=== PATIENT | female | born 1940 | race Caucasian/White ===

== ENCOUNTER 2017-11-29 05:42 | Inpatient (IN) | payer MEDICARE, MEDICAID ==
[~2017-11-29] VITALS: Ht 157.5 cm; Wt 63.5 kg
--- NOTE | ~2017-11-29 | EKG ---
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
[2017-11-29 05:42] VITALS: BP 102/53
[~2017-11-29 05:42] MED LIST: ALL DAY PAIN R220 MG PO; ANTACID168 MG PO; APAP500 PO; ARTIFICIAL TEA1 EACH OPHTHALMIC; BENZTROPINE MES1 MG PO; BETA CAROTEN25000 IU PO; CEFUROXIME500 MG PO; CHOLESTYRAMINE R5 GM MC; CLARITIN10 MG PO; FANAPT12 MG PO; GABAPENTIN 100100 MG PO; LEVAQUIN 500 M500 M1 PO; LOPERAMIDE 2 MG2 M1 PO; LOPRESSOR 12.12.5 MG PO; LYRICA 50 MG50 MG PO; METOPROLOL SUCC50 MG PO; NIZORAL120 ML TP; NYSTATIN 1100000 U/M PO; PREDNISONE 10 M10 MG PO; PROAIR HFA8.5 GM INH; REMERON15 MG PO; RISPERDAL0.25 MG PO; SYMBICORT160 MCG/4. INH; UNICOMPLEX M TA1 TA1 PO; ZANTAC 150MG T150 MG PO
[2017-11-29] MEDS ORDERED: FANAPT12 MG ×2 (05:50)
[2017-11-29] MEDS ORDERED: ONDANSETRON HCL4 M2 (05:54)
[2017-11-29] MEDS ORDERED: HYDROCODONE-AP1 EAC6 (05:56)
[2017-11-29 06:14] LABS: ABSOLUTE EOSINOPHILS 0.5 thou/uL (0.0-0.7); ABSOLUTE LYMPHOCYTES 2.8 thou/uL (0.8-5.3); ABSOLUTE MONOCYTES 0.7 thou/uL (0.0-1.2); ABSOLUTE NEUTROPHILS 3.4 thou/uL (1.6-8.1); BASOPHILS 0.4 %; EOSINOPHILS 6.3 %; HEMATOCRIT 43.8 % (37.0-47.0); HEMOGLOBIN 14.6 gm/dL (12.0-15.0); LYMPHOCYTES 38.1 %; MCH 31.1 pg (26.0-34.0); MCHC 33.4 g/dL (28.0-37.0); MCV 92.9 fL (80.0-100.0); MPV 7.7 fl. (7.2-11.1); NUCLEATED RBCS 0 /100WBC; PLATELET COUNT* 187 thou/uL (150-400); POLYS 46.2 %; RBC 4.71 mil/uL (4.20-5.00); WBC 7.3 thou/uL (4.0-11.0)
[2017-11-29 06:23] LABS: ANION GAP 4 mmol/L (7-16); BUN 10 mg/dL (7-18); CALCIUM 8.5 mg/dL (8.5-10.1); CHLORIDE 107 mmol/L (98-107); CO2 31 mmol/L (21-32); CREATININE 0.8 mg/dL (0.6-1.3); GLUCOSE 96 mg/dL (70-99); POTASSIUM 3.8 mmol/L (3.5-5.1); SODIUM 142 mmol/L (136-145)
[2017-11-29 06:38] LABS: ALBUMIN 3.5 g/dL (3.4-5.0); ALKALINE PHOSPHATASE 104 U/L (46-116); LIPASE 69 U/L (73-393); NT-PRO BRAIN NAT PEPTIDE 116 pg/mL (<300); SGOT 18 U/L (15-37); SGPT 21 U/L (30-65); TOTAL BILIRUBIN 0.3 mg/dL (<0.1-1.0); TOTAL PROTEIN 6.6 g/dL (6.4-8.2); TROPONIN-I LEVEL <0.06 ng/mL (<0.06)
[2017-11-29 09:19] VITALS: BP 109/58
[2017-11-29 09:30] VITALS: BP 124/74
--- NOTE | 2017-11-29 09:30 | NUR ---
PT UP TO ROOM 108 VIA CART. PT ORIENTED TO ROOM,CALL LIGHT WITHIN REACH. PT UP IN ROOM,NO FALL RISK.
--- NOTE | 2017-11-29 12:18 | NUR ---
SPOKE TO NURSE AT [facility]. MED LIST RECEIVED
--- NOTE | 2017-11-29 14:43 | EKG ---
[place] [address] ELECTROCARDIOGRAM REPORT Name: JUAN JACOBO Room: [address] ADM IN .R.#: [id number] Admission: 11/29/17 Attend Phys: Bryce Travis MD Discharge: Date of : 44 Report #: [id number] THIS REPORT FOR: //name// 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
[2017-11-29 16:04] VITALS: BP 119/69
--- NOTE | 2017-11-29 17:02 | NUR ---
PT UP IN ROOM WITH STEADY GAIT. PT DENIES PAIN. NO SOA NOTED. PT TOLERATING PO WELL
[2017-11-29 20:00] VITALS: BP 111/63
[2017-11-30] VITALS: BP 121/72
--- NOTE | 2017-11-30 04:26 | NUR ---
PATIENT IS A/O X 4 AND PLEASANT. PATIENT ENJOYS WALKING IN ROOM AND HAS A STEADY GAIT, ALTHOUGH SHE HAS NOT AMBULATED OVERNIGHT OFTEN. PATIENT DENIES ANY SOA AND PER ASSESSENT, HAS NO COUGH AT THIS TIME. PATIENT HAD HER LAST BOWEL MOVEMENT 11/29/17, ALTHOUGH SHE VERBALIZES THAT SHE HAS DIARRHEA ALMOST EVERY NIGHT. 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 2L O2 WAS PLACED ON PATIENT AT THAT TIME. PATIENT RESPIRATIONS WERE REGULAR AND EVEN AND PATIENT WAS NOT C/O SOA AT THAT TIME. HOURLY ROUNDS PERFORMED. NURSING TO FOLLOW-UP NECESSARY. ALL FALL PRECAUTIONS IN PLACE, INCLUDING CALL LIGHT WTIHIN REACH. WILL CONTINUE TO MONITOR CLOSELY.
[2017-11-30 08:00] VITALS: BP 109/64
--- NOTE | 2017-11-30 12:17 | NUR ---
CM SPOKE TO THE PATIENT TO DISCUSS HOME SITUATION, DISCHARGE PLANNING, AND TO INFORM OF THE ROLE OF CM. PATIENT ALERT, BUT FORGETFUL. CM SPOKE TO CHERYL AT [facility] AND SHE INFORMS THAT THE PATIENT IS A RESIDENT AT [employer], USUALLY CARES FOR HERSELF, AND DOES NOT USE ANY EQUIPMENT. PATIENT HAS A PUBLIC RUG RENOVATOR (BRE MICHAUD) AND SHE WILL NEED TO BE CONTACTED PRIOR TO DISCHARGE. SHE ALSO INFORMS THAT THE PATIENT WILL NEED MEDICAID TRANSPORT AT DISCHARGE. CM WILL REMAIN AVIALABLE TO ASSIST AND FOLLOW NEEDED.
[2017-11-30] MEDS ORDERED: PREDNISONE 10 M10 MG PO ×2 (12:29)
[2017-11-30] MEDS ORDERED: PRILOSEC OTC20 MG PO ×2 (12:31)
[2017-11-30] MEDS ORDERED: LEVAQUIN 500 M500 M2 PO ×2 (12:31)
[2017-11-30 12:32] VITALS: BP 109/64
[2017-12-01] MEDS ORDERED: PROTONIX40 M1 PO (08:33)
[2017-12-01] MEDS ORDERED: ENOXAPARIN40 MG/0.1 SUBQ (08:34)
[2017-12-01] MEDS ORDERED: PREVALITE PACKET4 GM PO (08:35)
[2017-12-01] MEDS ORDERED: PEPCID20 MG PO (08:36)
[2017-12-01] MEDS ORDERED: LEVOFLOXAC250 MG/50 IV ×2 (08:37)
[2017-12-01] MEDS ORDERED: METOPROLOL TART25 MG PO ×2 (08:39)
[2017-12-01] MEDS ORDERED: COLACE100 MG PO (08:40)
[2017-12-01] MEDS ORDERED: MIRALAX17 GM PO (08:43)
[2017-12-01] MEDS ORDERED: TYLENOL325 MG PO (08:44)
[2017-12-01] MEDS ORDERED: BENZTROPINE MES1 MG PO (08:44)
== END 2017-11-30 12:30 | disposition home or self-care (01) | DRG 189 ==
LOC: M.ERS 05:42 → M.ORTHSURG 06:56 → M.TBA-ER 06:56 → M.ORTHSURG 09:24
PROVIDERS: Emergency Medicine Emergency Medical Services; ADMIT Internal Medicine
DX: J96.20 Acute and chronic respiratory failure, unspecified whether with hypoxia or hypercapnia (principal); J44.1 Chronic obstructive pulmonary disease with (acute) exacerbation; R65.10 Systemic inflammatory response syndrome (SIRS) of non-infectious origin without acute organ dysfunction; J44.0 Chronic obstructive pulmonary disease with (acute) lower respiratory infection; J20.9 Acute bronchitis, unspecified; I10 Essential (primary) hypertension; F20.9 Schizophrenia, unspecified; M79.7 Fibromyalgia; F41.9 Anxiety disorder, unspecified; F31.9 Bipolar disorder, unspecified; F17.210 Nicotine dependence, cigarettes, uncomplicated; Z79.899 Other long term (current) drug therapy; Z88.2 Allergy status to sulfonamides; Z82.49 Family history of ischemic heart disease and other diseases of the circulatory system

== ENCOUNTER 2017-12-01 08:23 | Inpatient (IN) | payer MEDICARE, MEDICAID ==
[~2017-12-01] VITALS: Ht 157.5 cm; Wt 65.5 kg
[~2017-12-01 08:23] MED LIST changes: +FANAPT12 MG; +HYDROCODONE-AP1 EAC6; +LEVAQUIN 500 M500 M2 PO; +ONDANSETRON HCL4 M2; +PRILOSEC OTC20 MG PO
[2017-12-01 08:25] VITALS: BP 107/64
[2017-12-01] MEDS ORDERED: PROTONIX40 M1 PO (08:33)
[2017-12-01] MEDS ORDERED: ENOXAPARIN40 MG/0.1 SUBQ (08:34)
[2017-12-01] MEDS ORDERED: PREVALITE PACKET4 GM PO (08:35)
[2017-12-01] MEDS ORDERED: PEPCID20 MG PO (08:36)
[2017-12-01] MEDS ORDERED: LEVOFLOXAC250 MG/50 IV ×2 (08:37)
[2017-12-01] MEDS ORDERED: METOPROLOL TART25 MG PO ×2 (08:39)
[2017-12-01] MEDS ORDERED: COLACE100 MG PO (08:40)
[2017-12-01] MEDS ORDERED: MIRALAX17 GM PO (08:43)
[2017-12-01] MEDS ORDERED: TYLENOL325 MG PO (08:44)
[2017-12-01] MEDS ORDERED: BENZTROPINE MES1 MG PO (08:44)
[2017-12-01 09:06] LABS: ABSOLUTE EOSINOPHILS 0.1 thou/uL (0.0-0.7); ABSOLUTE LYMPHOCYTES 2.4 thou/uL (0.8-5.3); ABSOLUTE MONOCYTES 0.9 thou/uL (0.0-1.2); ABSOLUTE NEUTROPHILS 10.8 thou/uL (1.6-8.1); BASOPHILS 0.1 %; EOSINOPHILS 0.5 %; HEMATOCRIT 43.8 % (37.0-47.0); HEMOGLOBIN 14.5 gm/dL (12.0-15.0); LYMPHOCYTES 16.7 %; MCHC 33.1 g/dL (28.0-37.0); MCV 93.8 fL (80.0-100.0); MONOCYTES 6.1 %; MPV 7.9 fl. (7.2-11.1); NUCLEATED RBCS 0 /100WBC; PLATELET COUNT* 187 thou/uL (150-400); POLYS 76.6 %; RBC 4.67 mil/uL (4.20-5.00); RDW-CV 14.3 % (10.5-14.5); WBC 14.1 thou/uL (4.0-11.0)
[2017-12-01 09:16] LABS: CALCIUM 8.2 mg/dL (8.5-10.1); CREATININE 0.9 mg/dL (0.6-1.3); POTASSIUM 4.3 mmol/L (3.5-5.1)
[2017-12-01 09:21] LABS: ALBUMIN 3.4 g/dL (3.4-5.0); TOTAL BILIRUBIN 0.3 mg/dL (<0.1-1.0); TOTAL PROTEIN 6.3 g/dL (6.4-8.2)
[2017-12-01 09:26] LABS: NT-PRO BRAIN NAT PEPTIDE 708 pg/mL (<300); TROPONIN-I LEVEL <0.06 ng/mL (<0.06)
[2017-12-01 09:35] VITALS: BP 96/63
[2017-12-01 10:00] VITALS: BP 104/57
--- NOTE | 2017-12-01 10:12 | NUR ---
PATIENT ADMITTED FROM ER TO ROOM 105. ALERT AND ORIENTED. DISCHARGED FROM HOSPITAL YESTERDAY, STATES ASSISTED LIVING FACILITY WAS NOT GIVING HER BREATHING TREATMENTS. RA SAT IN THE 80'S. 93% ON RA CURRENTLY. ADMISSSION HISTORY AND ASSESSMENT CHARTED. FALL PREVENTION DISCUSSED WITH PATIENT. ORIENTED TO ROOM AND ENVIROMET. VSS. CALLOUS LEFT HEEL, DRY. HEELS ELEVATED ON PILLOW. CALL LIGHT WITHIN REACH. WILL CONTINUE TO [facility].
[2017-12-01 15:45] VITALS: BP 111/62
--- NOTE | 2017-12-01 16:02 | NUR ---
PATIENT REMAINS AT BASELINE ORIENTATION, SLIGHTLY FORGETFUL.VSS. TOLERATING MEALS. SOB ON EXERTION IMPROVING THIS AFTERNOON. O2 AT 2L, SAT 93%. VOIDING PER TOILET. PATIENT DENIES NEEDS. CALL LIGHT WITHIN REACH. WILL CONTINUE TO MONITOR.
--- NOTE | 2017-12-01 16:19 | NUR ---
CM SPOKE TO THE PATIENT TO DISCUSS HOME SITUATION, AND DISCHARGE PLANNING. PATIENT IS KNOWN TO THIS CM SHE STEWART JUST BEEN D/C'D YESTERDAY BACK TO [facility]. PATIENT STATES 'I COULDN'T BREATH SO I HAD TO COME BACK'. PATIENT PLANS TO RETURN TO [place] AT DISCHARGE. PATIENT HAS A P.A. BRE MICHAUD AND SHE WILL NEED TO BE CONTACTED PRIOR TO DISCHARGE. RN WILL NEED TO CONTACT [facility] AND GIVE REPORT, AND ORDERS WILL NEED TO BE FAXED WELL. PATIENT DOES NOT HAVE TRANSPORTATION HOME AND WILL ALSO REQUIRE MEDICAID TRANSPORT ([employer]) AT D/C. CM WILL REMAIN AVAILABLE TO ASSIST AND FOLLOW NEEDED. [facility] PHONE: [phone] FAX: [phone] [facility] (MEDICAID TRANSPORT) PHONE: [phone] PUBLIC GRANITE CHIP TERRAZZO FINISHER (BRE MICHAUD) PHONE: [phone]
[2017-12-01 21:00] VITALS: BP 112/61
[2017-12-02 04:06] VITALS: BP 127/73
--- NOTE | 2017-12-02 05:14 | NUR ---
PATIENT ALERT AND ORIENTED, FORGETFUL AT TIMES. VITALS STABLE. ON 2L OF OXYGEN. SOB WITH EXERTION. UP WITH ASSIST X 1 TO BATHROOM. INSTRUCTED TO CALL FOR ASSISTANCE. RESTED WELL THROUGH THE NIGHT. HOURLY ROUNDS. BED ALARM IN USE. NURSING WILL CONTINUE TO MONITOR.
[2017-12-02 08:25] VITALS: BP 105/69
[2017-12-02 15:59] VITALS: BP 113/59
[2017-12-02 20:30] VITALS: BP 145/55
[2017-12-03 04:00] VITALS: BP 103/56
[2017-12-03 04:03] LABS: HEMOGLOBIN 14.3 gm/dL (12.0-15.0); MCH 31.2 pg (26.0-34.0); MCHC 33.4 g/dL (28.0-37.0); MCV 93.6 fL (80.0-100.0); MPV 8.4 fl. (7.2-11.1); RBC 4.6 mil/uL (4.20-5.00); RDW-CV 14.6 % (10.5-14.5); WBC 13.3 thou/uL (4.0-11.0)
[2017-12-03 04:17] LABS: CALCIUM 8.3 mg/dL (8.5-10.1); MAGNESIUM 2.2 mg/dL (1.8-2.4); POTASSIUM 4.1 mmol/L (3.5-5.1)
--- NOTE | 2017-12-03 07:36 | NUR ---
PATIENT ALERT AND ORIENTED, FORGETFUL AT TIMES. VITALS STABLE. ON 2L OF OXYGEN. UP SBA TO BATHROOM. TYLENOL GIVEN FOR LEFT HEEL PAIN. HOURLY ROUNDS. BED ALARM IN USE. NURSING WILL CONTINUE TO MONITOR.
[2017-12-03 08:37] VITALS: BP 112/62
[2017-12-03] MEDS ORDERED: LEVAQUIN 750 M750 MG PO (09:55)
[2017-12-03] MEDS ORDERED: PREDNISONE 10 M10 MG PO (09:56)
[2017-12-03 09:58] VITALS: BP 112/62
--- NOTE | 2017-12-03 14:15 | NUR ---
PT.HAS DISCHARGE ORDERS FOR TODAY TO RETURN TO [facility]. TRANSPORTATION SET UP WITH [facility] FOR 2:05-5:05 ([phone]/TRIP #[id number]). NOTIFIED CHERYL/[facility] [phone] THAT PT.RETURNING TODAY. FAXED DISCHARGE ORDERS TO HER AT [phone]. PT.HAS HH ORDERS. CHERYL REQUEST I SET UP WITH [facility]. SPOKE WITH AGUEDA/VIKA AND FAXED ORDERS/H&P TO HER [phone]. THEY WILL CALL [facility] TO SET UP APPT.TIME. CHART COPIED TO GO WITH PT. MACY WILHELM WILL CALL REPORT. NOTIFIED NAI AT PUBLIC ADM.OFFICE [phone] THAT PT.DISCHARGEING TODAY. SHE WILL GIVE BRE MICHAUD DPA,MESSAGE AND ENTER IT INTO THE RECORDS.
--- NOTE | 2017-12-03 16:52 | NUR ---
PATIENT DISCHARGED TO [facility]. REPORT CALLED. MEDICAID TRANSPORTATION PICKED PATIENT UP. IV REMOVED.
== END 2017-12-03 16:54 | DRG 70 ==
LOC: M.ERS 08:23 → M.TBA-ER 08:52 → M.ORTHSURG 08:52
PROVIDERS: Family Medicine; ADMIT Internal Medicine
DX: G93.41 Metabolic encephalopathy (principal); J96.21 Acute and chronic respiratory failure with hypoxia; J44.1 Chronic obstructive pulmonary disease with (acute) exacerbation; I10 Essential (primary) hypertension; J40 Bronchitis, not specified as acute or chronic; F41.9 Anxiety disorder, unspecified; F31.9 Bipolar disorder, unspecified; K59.00 Constipation, unspecified; F17.210 Nicotine dependence, cigarettes, uncomplicated; R09.02 Hypoxemia; D72.829 Elevated white blood cell count, unspecified; F20.9 Schizophrenia, unspecified; K21.9 Gastro-esophageal reflux disease without esophagitis; Z88.2 Allergy status to sulfonamides; Z82.49 Family history of ischemic heart disease and other diseases of the circulatory system

== ENCOUNTER 2018-03-02 18:32 | Inpatient (IN) | payer MEDICARE, MEDICAID ==
[~2018-03-02] VITALS: Ht 157.5 cm; Wt 70.3 kg
[~2018-03-02 18:32] MED LIST changes: +COLACE100 MG PO; +ENOXAPARIN40 MG/0.1 SUBQ; +LEVAQUIN 750 M750 MG PO; +LEVOFLOXAC250 MG/50 IV; +METOPROLOL TART25 MG PO; +MIRALAX17 GM PO; +PEPCID20 MG PO; +PREVALITE PACKET4 GM PO; +PROTONIX40 M1 PO; +TYLENOL325 MG PO
[2018-03-02 18:34] VITALS: BP 129/72
[2018-03-02 19:03] LABS: ABSOLUTE EOSINOPHILS 0.8 thou/uL (0.0-0.7); ABSOLUTE LYMPHOCYTES 2.5 thou/uL (0.8-5.3); ABSOLUTE MONOCYTES 1.1 thou/uL (0.0-1.2); ABSOLUTE NEUTROPHILS 5.2 thou/uL (1.6-8.1); BASOPHILS 0.3 %; EOSINOPHILS 8.3 %; HEMATOCRIT 42.5 % (37.0-47.0); HEMOGLOBIN 14.1 gm/dL (12.0-15.0); LYMPHOCYTES 25.7 %; MCH 31.3 pg (26.0-34.0); MCHC 33.3 g/dL (28.0-37.0); MONOCYTES 11.2 %; MPV 7.9 fl. (7.2-11.1); NUCLEATED RBCS 0 /100WBC; PLATELET COUNT* 174 thou/uL (150-400); POLYS 54.5 %; RBC 4.52 mil/uL (4.20-5.00); RDW-CV 13.6 % (10.5-14.5); WBC 9.5 thou/uL (4.0-11.0)
[2018-03-02 19:08] LABS: ANION GAP 9 mmol/L (7-16); APTT 26.4 Seconds (25.0-31.3); BUN 11 mg/dL (7-18); CALCIUM 8.7 mg/dL (8.5-10.1); CHLORIDE 102 mmol/L (98-107); CO2 30 mmol/L (21-32); CREATININE 0.9 mg/dL (0.6-1.3); GLUCOSE 192 mg/dL (70-99); POTASSIUM 3.8 mmol/L (3.5-5.1); PROTIME 10.2 Seconds (9.20-11.50); SODIUM 141 mmol/L (136-145)
[2018-03-02 19:18] LABS: ALBUMIN 3.8 g/dL (3.4-5.0); ALKALINE PHOSPHATASE 115 U/L (46-116); LIPASE 67 U/L (73-393); MAGNESIUM 1.9 mg/dL (1.8-2.4); NT-PRO BRAIN NAT PEPTIDE 138 pg/mL (<300); SGOT 21 U/L (15-37); SGPT 26 U/L (30-65); TOTAL BILIRUBIN 0.3 mg/dL (<0.1-1.0); TROPONIN-I LEVEL <0.06 ng/mL (<0.06)
[2018-03-02 20:34] VITALS: BP 119/71
[2018-03-02 20:45] VITALS: BP 115/90
[2018-03-02] MEDS ORDERED: FANAPT12 MG PO (23:16)
[2018-03-02] MEDS ORDERED: VITAMIN D2000 UNIT PO (23:17)
[2018-03-02] MEDS ORDERED: LOPERAMIDE 2 MG2 M1 PO (23:18)
[2018-03-02] MEDS ORDERED: HYDROCODONE-AP1 EAC6 PO (23:19)
[2018-03-03] VITALS (7 sets, daily range): BP systolic 106–139; BP diastolic 50–67
[2018-03-03 04:38] LABS: CALCIUM 8.9 mg/dL (8.5-10.1); CREATININE 1.1 mg/dL (0.6-1.3); POTASSIUM 4.3 mmol/L (3.5-5.1)
[2018-03-03 04:46] LABS: HEMATOCRIT 41.8 % (37.0-47.0); MCH 31.2 pg (26.0-34.0); MCHC 33.6 g/dL (28.0-37.0); MCV 92.9 fL (80.0-100.0); MPV 8.3 fl. (7.2-11.1); RBC 4.5 mil/uL (4.20-5.00); RDW-CV 13.5 % (10.5-14.5); WBC 7.1 thou/uL (4.0-11.0)
--- NOTE | 2018-03-03 12:07 | EKG ---
[place] [address] ELECTROCARDIOGRAM REPORT Name: DONNELLJUAN Room: [address] IN [facility]#: [id number] Admission: 03/02/18 Attend Phys: Rowdy Rod, Discharge: Date of : 44 Report #: [id number] THIS REPORT FOR: //name// [facility] ED Test Date: 2018-03-02 Test Time: 18:40:23 Pat Name: JUAN JACOBO Department: Room: Gender: F Chief Order Dispatcher: YISSEL : 1940 Requested By: Gee Martinez Order Number: [id number] MD: Fredi Navarro Measurements Intervals [place] Rate: 115 P: 87 SC: 166 QRS: 72 QRSD: 84 T: 10 QT: 328 QTc: 454 Interpretive Statements Sinus tachycardia Compared to ECG 12/01/2017 08:44:07 Sinus rhythm no longer present Electronically Signed On 03-03-2018 12:07:28 CDT by Fredi Navarro [email or web address] <ELECTRONICALLY SIGNED> By: Sabina Navarro MD, [facility] 03/03/18 1207 39 39 Sabina Navarro MD, [facility] /EPI
[2018-03-04 03:46] VITALS: BP 116/68
[2018-03-04 05:05] LABS: HEMATOCRIT 40.9 % (37.0-47.0); HEMOGLOBIN 13.6 gm/dL (12.0-15.0); MCH 30.7 pg (26.0-34.0); MCHC 33.3 g/dL (28.0-37.0); MCV 92.4 fL (80.0-100.0); MPV 8.3 fl. (7.2-11.1); RBC 4.43 mil/uL (4.20-5.00); RDW-CV 13.7 % (10.5-14.5); WBC 19.1 thou/uL (4.0-11.0)
[2018-03-04 05:26] LABS: CALCIUM 8.5 mg/dL (8.5-10.1); POTASSIUM 4.6 mmol/L (3.5-5.1)
[2018-03-04 08:09] VITALS: BP 93/59
[2018-03-04 11:36] VITALS: BP 95/41
[2018-03-04 15:39] VITALS: BP 135/67
[2018-03-04 20:15] VITALS: BP 127/58
[2018-03-05 05:01] LABS: HEMATOCRIT 40.2 % (37.0-47.0); HEMOGLOBIN 13.3 gm/dL (12.0-15.0); MCH 30.7 pg (26.0-34.0); MCHC 33.2 g/dL (28.0-37.0); MCV 92.6 fL (80.0-100.0); MPV 8.2 fl. (7.2-11.1); NUCLEATED RBCS 0 /100WBC; PLATELET COUNT* 184 thou/uL (150-400); RBC 4.34 mil/uL (4.20-5.00); RDW-CV 13.5 % (10.5-14.5); WBC 16.3 thou/uL (4.0-11.0)
[2018-03-05 05:29] LABS: ALBUMIN 3.2 g/dL (3.4-5.0); CALCIUM 8.4 mg/dL (8.5-10.1); CREATININE 0.9 mg/dL (0.6-1.3); MAGNESIUM 2.1 mg/dL (1.8-2.4); POTASSIUM 4.2 mmol/L (3.5-5.1); TOTAL BILIRUBIN 0.3 mg/dL (<0.1-1.0); TOTAL PROTEIN 6.2 g/dL (6.4-8.2)
[2018-03-05 06:00] LABS: ABSOLUTE EOSINOPHILS 0.2 thou/uL (0.0-0.7); ABSOLUTE LYMPHOCYTES 1.3 thou/uL (0.8-5.3); ABSOLUTE MONOCYTES 0.5 thou/uL (0.0-1.2); ABSOLUTE NEUTROPHILS 14.3 thou/uL (1.6-8.1); PLATELET ESTIMATE ADEQUATE
[2018-03-05 06:01] LABS: ANISOCYTOSIS 1+; POIKILOCYTOSIS 1+
[2018-03-05 08:39] VITALS: BP 142/78
[2018-03-05 12:27] VITALS: BP 126/64
[2018-03-05 16:00] VITALS: BP 140/70
[2018-03-05 20:43] VITALS: BP 130/70
[2018-03-05 23:33] VITALS: BP 127/72
[2018-03-06 03:55] VITALS: BP 111/52
[2018-03-06 07:59] VITALS: BP 117/69
[2018-03-06] MEDS ORDERED: CEFDINIR300 MG PO (10:07)
[2018-03-06] MEDS ORDERED: DUONEB 2.5-0.5 M3 ML INH (10:07)
[2018-03-06] MEDS ORDERED: AEROECLIPSE II1 EACH INH (10:07)
[2018-03-06] MEDS ORDERED: AZITHROMYCIN 2250 MG PO (10:07)
[2018-03-06] MEDS ORDERED: PREDNISONE 10 M10 MG PO (10:07)
[2018-03-06] MEDS ORDERED: ALBUTEROL2.5 MG/31 INH (10:37)
[2018-03-06] MEDS ORDERED: VITAMIN D3400 UNIT PO (10:37)
[2018-03-06 10:40] VITALS: BP 117/69
[2018-03-06 12:13] VITALS: BP 117/69
== END 2018-03-06 13:00 | disposition home or self-care (01) | DRG 177 ==
LOC: M.ERS 18:32 → M.TBA-ER 19:05 → M.2W 19:05
PROVIDERS: Family Medicine; Internal Medicine; ADMIT Family Medicine
DX: J15.6 Pneumonia due to other Gram-negative bacteria (principal); J96.21 Acute and chronic respiratory failure with hypoxia; J44.1 Chronic obstructive pulmonary disease with (acute) exacerbation; R65.10 Systemic inflammatory response syndrome (SIRS) of non-infectious origin without acute organ dysfunction; E87.2 Acidosis; J18.9 Pneumonia, unspecified organism; I10 Essential (primary) hypertension; M79.7 Fibromyalgia; F41.9 Anxiety disorder, unspecified; E78.5 Hyperlipidemia, unspecified; I95.9 Hypotension, unspecified; R73.9 Hyperglycemia, unspecified; F31.9 Bipolar disorder, unspecified; F17.210 Nicotine dependence, cigarettes, uncomplicated; Z79.899 Other long term (current) drug therapy; Z88.2 Allergy status to sulfonamides; Z82.49 Family history of ischemic heart disease and other diseases of the circulatory system; Z82.5 Family history of asthma and other chronic lower respiratory diseases

== ENCOUNTER 2020-10-25 00:21 | Inpatient (IN) | payer MEDICARE, MEDICAID ==
[~2020-10-25] VITALS: Ht 177.8 cm; Wt 45.4 kg
[2020-10-25] VITALS (7 sets, daily range): BP systolic 91–141; BP diastolic 50–72
[~2020-10-25 00:21] MED LIST changes: +AEROECLIPSE II1 EACH INH; +ALBUTEROL2.5 MG/31 INH; +AZITHROMYCIN 2250 MG PO; +CEFDINIR300 MG PO; +DUONEB 2.5-0.5 M3 ML INH; +HYDROCODONE-AP1 EAC6 PO; +VITAMIN D2000 UNIT PO; +VITAMIN D3400 UNIT PO
[2020-10-25] MEDS ORDERED: FANAPT12 MG PO (00:34)
[2020-10-25] MEDS ORDERED: FANAPT6 MG PO (00:35)
[2020-10-25] MEDS ORDERED: BIOTIN1000 MCG PO (00:37)
[2020-10-25] MEDS ORDERED: NEURONTIN 300M300 M2 PO (00:37)
[2020-10-25] MEDS ORDERED: MELATONIN3 M2 PO (00:37)
[2020-10-25 01:02] LABS: ABSOLUTE BASOPHILS 0.1 thou/uL (0.0-0.2); ABSOLUTE EOSINOPHILS 0.4 thou/uL (0.0-0.7); ABSOLUTE LYMPHOCYTES 2.6 thou/uL (0.8-5.3); ABSOLUTE MONOCYTES 0.7 thou/uL (0.0-1.2); ABSOLUTE NEUTROPHILS 2.7 thou/uL (1.6-8.1); BASOPHILS 0.9 %; EOSINOPHILS 6.3 %; HEMATOCRIT 45.1 % (37.0-47.0); HEMOGLOBIN 14.9 gm/dL (12.0-15.0); LYMPHOCYTES 40.1 %; MCH 30.4 pg (26.0-34.0); MCV 92.2 fL (80.0-100.0); MONOCYTES 10.7 %; MPV 7.8 fl. (7.2-11.1); NUCLEATED RBCS 0 /100WBC; PLATELET COUNT* 172 thou/uL (150-400); RDW-CV 13.5 % (10.5-14.5); WBC 6.5 thou/uL (4.0-11.0)
[2020-10-25 01:10] LABS: CREATININE 0.8 mg/dL (0.6-1.3)
[2020-10-25 01:13] LABS: APTT 27.1 Seconds (25.0-31.3); INR 1.1; PROTIME 11.2 Seconds (9.20-11.50)
[2020-10-25 01:25] LABS: ALBUMIN 3.7 g/dL (3.4-5.0); MAGNESIUM 2.2 mg/dL (1.8-2.4); TOTAL BILIRUBIN 0.2 mg/dL (<0.1-1.0); TOTAL PROTEIN 6.8 g/dL (6.4-8.2)
--- NOTE | 2020-10-25 15:12 | EKG ---
[place] [address] ELECTROCARDIOGRAM REPORT Name: JUAN JACOBO Room: [address] ADM IN .R.#: [id number] Admission: 10/25/20 Attend Phys: Sigifredo Ceja, Discharge: Date of : 44 Date of Service: 10/25/20 0026 Report #: [id number] THIS REPORT FOR: //name// [facility] ED Test Date: 2020-10-25 Test Time: 00:26:30 Pat Name: JUAN JACOBO Department: Room: [facility] Gender: F Supervisor Of Guidance And Testing: [place] : 1940 Requested By: Ramy Shankar Order Number: [id number] MD: Shaheen Multani Measurements Intervals [place] Rate: 95 P: 83 MT: 179 QRS: 72 QRSD: 87 T: 53 QT: 372 QTc: 468 Interpretive Statements Sinus rhythm Compared to ECG 03/02/2018 18:40:23 Sinus tachycardia no longer present Electronically Signed On 10-25-2020 15:12:38 OCCUPATIONAL THERAPY MANAGER by Shaheen Multani [email or web address] <ELECTRONICALLY SIGNED> By: Shaheen Multani MD, [facility] 10/25/20 1512 0026 0026 Shaheen Multani MD, [facility] /EPI
[2020-10-26] VITALS: BP 140/60
[2020-10-26 08:00] VITALS: BP 144/64
[2020-10-26 12:00] VITALS: BP 135/71
[2020-10-26 16:00] VITALS: BP 142/69
[2020-10-26 23:52] VITALS: BP 121/58
[2020-10-27 04:38] VITALS: BP 99/54
[2020-10-27 08:00] VITALS: BP 101/60
[2020-10-27] MEDS ORDERED: LEVOFLOXACIN500 MG PO (12:10)
[2020-10-27] MEDS ORDERED: PREDNISONE 10 M10 MG PO (12:11)
[2020-10-27 14:24] VITALS: BP 99/54
== END 2020-10-27 15:00 | DRG 177 ==
LOC: M.ERS 00:21 → M.TBA-ER 01:37 → M.2W 01:37
PROVIDERS: Emergency Medicine Emergency Medical Services; ADMIT Internal Medicine; ATTEND Internal Medicine
DX: J15.6 Pneumonia due to other Gram-negative bacteria (principal); J96.01 Acute respiratory failure with hypoxia; F20.9 Schizophrenia, unspecified; J84.10 Pulmonary fibrosis, unspecified; F17.210 Nicotine dependence, cigarettes, uncomplicated; J43.9 Emphysema, unspecified; I10 Essential (primary) hypertension; M79.7 Fibromyalgia; F41.9 Anxiety disorder, unspecified; F31.9 Bipolar disorder, unspecified; Z20.828 Contact with and (suspected) exposure to other viral communicable diseases; Z79.899 Other long term (current) drug therapy; Z88.2 Allergy status to sulfonamides

== ENCOUNTER 2021-01-16 02:43 | Inpatient (IN) | payer MEDICARE, MEDICAID ==
[~2021-01-16] VITALS: Ht 157.5 cm; Wt 66.7 kg
[2021-01-16] VITALS (7 sets, daily range): BP systolic 92–112; BP diastolic 46–67
[~2021-01-16 02:43] MED LIST changes: +BIOTIN1000 MCG PO; +FANAPT6 MG PO; +LEVOFLOXACIN500 MG PO; +MELATONIN3 M2 PO; +NEURONTIN 300M300 M2 PO
[2021-01-16] MEDS ORDERED: ANTACID CALCIU215 MG PO (02:55)
[2021-01-16] MEDS ORDERED: LOPERAMIDE2 MG PO (02:56)
[2021-01-16] MEDS ORDERED: MUCINEX DM ER1 EACH PO (02:56)
[2021-01-16] MEDS ORDERED: COLACE100 MG PO (02:56)
[2021-01-16] MEDS ORDERED: VENTOLIN HFA 1818 GM INH (02:57)
[2021-01-16] MEDS ORDERED: ROBITUSSIN10 MG PO (02:57)
[2021-01-16] MEDS ORDERED: TRAZODONE HCL50 MG PO (02:57)
[2021-01-16] MEDS ORDERED: NORCO7.5 PO (02:58)
[2021-01-16 03:38] LABS: ABSOLUTE BASOPHILS 0.1 thou/uL (0.0-0.2); ABSOLUTE EOSINOPHILS 0.4 thou/uL (0.0-0.7); ABSOLUTE LYMPHOCYTES 2.6 thou/uL (0.8-5.3); ABSOLUTE MONOCYTES 0.7 thou/uL (0.0-1.2); ABSOLUTE NEUTROPHILS 3.8 thou/uL (1.6-8.1); BASOPHILS 0.7 %; EOSINOPHILS 4.7 %; HEMATOCRIT 39.7 % (37.0-47.0); HEMOGLOBIN 13.3 gm/dL (12.0-15.0); LYMPHOCYTES 34.1 %; MCH 31.1 pg (26.0-34.0); MCHC 33.6 g/dL (28.0-37.0); MCV 92.8 fL (80.0-100.0); MONOCYTES 9.5 %; MPV 7.9 fl. (7.2-11.1); NUCLEATED RBCS 0 /100WBC; PLATELET COUNT* 185 thou/uL (150-400); RBC 4.28 mil/uL (4.20-5.00); RDW-CV 14.7 % (10.5-14.5); WBC 7.5 thou/uL (4.0-11.0)
[2021-01-16 03:48] LABS: CALCIUM 8.6 mg/dL (8.5-10.1); CREATININE 0.8 mg/dL (0.6-1.3); POTASSIUM 3.5 mmol/L (3.5-5.1)
[2021-01-16 03:52] LABS: ALBUMIN 3.4 g/dL (3.4-5.0); TOTAL BILIRUBIN 0.3 mg/dL (<0.1-1.0); TOTAL PROTEIN 6.4 g/dL (6.4-8.2)
[2021-01-16 05:21] LABS: BE -1.4 mmol/L (-2 to +3); PO2 100.2 mmHg (75.0-100.0)
[2021-01-16 05:23] LABS: PCO2 54.4 mmHg (35.0-45.0); pH 7.296 (7.340-7.450)
[2021-01-16 09:48] LABS: BE -3.2 mmol/L (-2 to +3); PCO2 47.3 mmHg (35.0-45.0); PO2 77.5 mmHg (75.0-100.0)
[2021-01-17] VITALS: BP 112/60
[2021-01-17 04:00] VITALS: BP 105/56
[2021-01-17 05:06] LABS: HEMATOCRIT 38.7 % (37.0-47.0); HEMOGLOBIN 12.8 gm/dL (12.0-15.0); MCH 30.8 pg (26.0-34.0); MCV 93.3 fL (80.0-100.0); MPV 8.3 fl. (7.2-11.1); RBC 4.15 mil/uL (4.20-5.00); RDW-CV 14.9 % (10.5-14.5); WBC 10.8 thou/uL (4.0-11.0)
[2021-01-17 05:36] LABS: ALBUMIN 3.2 g/dL (3.4-5.0); CALCIUM 8.3 mg/dL (8.5-10.1); CREATININE 0.7 mg/dL (0.6-1.3); MAGNESIUM 2.1 mg/dL (1.8-2.4); POTASSIUM 4.3 mmol/L (3.5-5.1); TOTAL BILIRUBIN 0.2 mg/dL (<0.1-1.0); TOTAL PROTEIN 6.2 g/dL (6.4-8.2)
[2021-01-17 07:50] VITALS: BP 112/61
[2021-01-17 12:18] VITALS: BP 123/60
[2021-01-17 15:56] VITALS: BP 120/55
--- NOTE | 2021-01-17 17:32 | EKG ---
[place] [address] ELECTROCARDIOGRAM REPORT Name: JUAN JACOBO Room: [address] ADM IN M.R.#: [id number] Admission: 01/16/21 Attend Phys: Bryce Travis, Discharge: Date of : 44 Date of Service: 01/16/21 0303 Report #: [id number] THIS REPORT FOR: //name// [facility] ED Test Date: 2021-01-16 Test Time: 03:03:35 Pat Name: JUAN JACOBO Department: Room: [facility] Gender: F Investor Relations Manager: JENNIE : 1940 Requested By: Anna Lea Order Number: [id number] MD: Shaheen Multani Measurements Intervals [place] Rate: 90 P: 79 AL: 189 QRS: 74 QRSD: 80 T: 53 QT: 377 QTc: 462 Interpretive Statements Sinus rhythm Compared to ECG 10/25/2020 00:26:30 No significant changes Electronically Signed On 01-17-2021 17:32:18 CDT by Shaheen Multani [email or web address] <ELECTRONICALLY SIGNED> By: Shaheen Multani MD, [facility] 01/17/21 1732 2 2 Shaheen Multani MD, [facility] /EPI
[2021-01-17 20:44] VITALS: BP 109/56
[2021-01-18] VITALS: BP 112/55
[2021-01-18 04:08] VITALS: BP 125/54
[2021-01-18 04:32] LABS: ALBUMIN 3.1 g/dL (3.4-5.0); CALCIUM 8.3 mg/dL (8.5-10.1); CREATININE 0.8 mg/dL (0.6-1.3); MAGNESIUM 2.1 mg/dL (1.8-2.4); POTASSIUM 4.2 mmol/L (3.5-5.1); TOTAL BILIRUBIN 0.3 mg/dL (<0.1-1.0); TOTAL PROTEIN 5.8 g/dL (6.4-8.2)
[2021-01-18 04:39] LABS: HEMATOCRIT 36.5 % (37.0-47.0); MCH 30.5 pg (26.0-34.0); MCV 92.6 fL (80.0-100.0); MPV 8.3 fl. (7.2-11.1); RBC 3.95 mil/uL (4.20-5.00); RDW-CV 15.1 % (10.5-14.5); WBC 12.3 thou/uL (4.0-11.0)
[2021-01-18 11:40] VITALS: BP 116/66
[2021-01-18 16:05] VITALS: BP 123/69
[2021-01-18 21:04] VITALS: BP 124/65
[2021-01-19 00:12] VITALS: BP 130/59
[2021-01-19 04:15] VITALS: BP 139/74
[2021-01-19 04:40] VITALS: BP 130/59
[2021-01-19] MEDS ORDERED: NEBULIZER MISCELL (09:25)
[2021-01-19] MEDS ORDERED: PREDNISONE 10 M10 M1 PO (09:25)
[2021-01-19] MEDS ORDERED: NORCO7.5 PO (09:25)
[2021-01-19] MEDS ORDERED: BROVANA15 MCG/2 M INH (09:25)
[2021-01-19] MEDS ORDERED: LEVOFLOXACIN250 MG PO (09:25)
[2021-01-19] MEDS ORDERED: PULMICORT0.25 MG/2 INH (09:25)
[2021-01-19 09:35] VITALS: BP 117/65
== END 2021-01-19 13:20 | disposition home health service (06) | DRG 177 ==
LOC: M.ERS 02:43 → M.2W 04:55 → M.TBA-ER 04:55 → M.2W 09:26
PROVIDERS: Internal Medicine; Personal Emergency Response Attendant; ADMIT Internal Medicine; ATTEND Internal Medicine
PROC: 5A09357 Assistance with Respiratory Ventilation, Less than 24 Consecutive Hours, Continuous Positive Airway Pressure (ICD-10-PCS; principal; 2021-01-16)
DX: J15.6 Pneumonia due to other Gram-negative bacteria (principal); J96.22 Acute and chronic respiratory failure with hypercapnia; J96.21 Acute and chronic respiratory failure with hypoxia; J44.1 Chronic obstructive pulmonary disease with (acute) exacerbation; J44.0 Chronic obstructive pulmonary disease with (acute) lower respiratory infection; I10 Essential (primary) hypertension; F20.9 Schizophrenia, unspecified; F41.9 Anxiety disorder, unspecified; F31.9 Bipolar disorder, unspecified; Z20.822 Contact with and (suspected) exposure to COVID-19; Z87.891 Personal history of nicotine dependence; Z79.899 Other long term (current) drug therapy; Z88.2 Allergy status to sulfonamides

== ENCOUNTER 2021-05-06 19:42 | Inpatient (IN) | payer MEDICARE, MEDICAID ==
[~2021-05-06] VITALS: Ht 157.5 cm; Wt 90.0 kg
[~2021-05-06 19:42] MED LIST changes: +ANTACID CALCIU215 MG PO; +BROVANA15 MCG/2 M INH; +LEVOFLOXACIN250 MG PO; +LOPERAMIDE2 MG PO; +MUCINEX DM ER1 EACH PO; +NEBULIZER MISCELL; +NORCO7.5 PO; +PREDNISONE 10 M10 M1 PO; +PULMICORT0.25 MG/2 INH; +ROBITUSSIN10 MG PO; +TRAZODONE HCL50 MG PO; +VENTOLIN HFA 1818 GM INH
[2021-05-06 19:47] VITALS: BP 128/53
[2021-05-06 20:48] LABS: BE -1.9 mmol/L (-2 to +3); PCO2 41.4 mmHg (35.0-45.0); pH 7.368 (7.340-7.450)
[2021-05-06 20:52] LABS: PO2 53.6 mmHg (75.0-100.0)
[2021-05-06 20:56] LABS: ABSOLUTE EOSINOPHILS 0.1 thou/uL (0.0-0.7); ABSOLUTE LYMPHOCYTES 0.8 thou/uL (0.8-5.3); ABSOLUTE MONOCYTES 0.7 thou/uL (0.0-1.2); ABSOLUTE NEUTROPHILS 2.1 thou/uL (1.6-8.1); BASOPHILS 0.4 %; HEMATOCRIT 39.3 % (37.0-47.0); HEMOGLOBIN 13.5 gm/dL (12.0-15.0); LYMPHOCYTES 21.6 %; MCH 31.2 pg (26.0-34.0); MCHC 34.4 g/dL (28.0-37.0); MCV 90.9 fL (80.0-100.0); MONOCYTES 19.2 %; MPV 7.8 fl. (7.2-11.1); NUCLEATED RBCS 0 /100WBC; PLATELET COUNT* 124 thou/uL (150-400); POLYS 55.8 %; RBC 4.32 mil/uL (4.20-5.00); RDW-CV 13.8 % (10.5-14.5); WBC 3.7 thou/uL (4.0-11.0)
[2021-05-06 21:16] LABS: CALCIUM 8.2 mg/dL (8.5-10.1); CREATININE 0.7 mg/dL (0.6-1.3); POTASSIUM 3.7 mmol/L (3.5-5.1)
[2021-05-06 21:22] LABS: ALBUMIN 3.6 g/dL (3.4-5.0); TOTAL BILIRUBIN 0.3 mg/dL (<0.1-1.0); TOTAL PROTEIN 6.6 g/dL (6.4-8.2)
[2021-05-06 23:30] VITALS: BP 109/62
[2021-05-07 00:30] VITALS: BP 111/63
[2021-05-07 00:52] VITALS: BP 111/63
[2021-05-07 03:54] VITALS: BP 122/67
[2021-05-07 08:37] LABS: URINE BILIRUBIN NEGATIVE (Negative); URINE BLOOD NEGATIVE (Negative); URINE CLARITY CLEAR; URINE COLOR YELLOW; URINE GLUCOSE-RANDOM NEGATIVE (Negative); URINE KETONES NEGATIVE (Negative); URINE LEUKOCYTES-REFLEX NEGATIVE (Negative); URINE NITRITE-REFLEX NEGATIVE (Negative); URINE PROTEIN NEGATIVE (Negative); URINE SPECIFIC GRAVITY <= 1.005 (1.005-1.030); URINE UROBILINOGEN 0.2 E.U./dl (0.2-1.0)
[2021-05-07 13:06] VITALS: BP 105/56
[2021-05-07 15:30] VITALS: BP 118/53
[2021-05-07 20:00] VITALS: BP 131/56
[2021-05-08 00:22] VITALS: BP 115/65
[2021-05-08 04:00] VITALS: BP 96/47
[2021-05-08 05:37] LABS: GLYCOHEMOGLOBIN (HGB A1C) 5.6 % (4.8-5.6)
[2021-05-08 08:00] VITALS: BP 112/50
[2021-05-08 11:19] LABS: HEMATOCRIT 40.1 % (37.0-47.0); HEMOGLOBIN 13.5 gm/dL (12.0-15.0); MCH 30.8 pg (26.0-34.0); MCHC 33.8 g/dL (28.0-37.0); MCV 91.3 fL (80.0-100.0); MPV 8.3 fl. (7.2-11.1); RBC 4.39 mil/uL (4.20-5.00); RDW-CV 13.9 % (10.5-14.5); WBC 4.7 thou/uL (4.0-11.0)
[2021-05-08 11:25] LABS: ALBUMIN 3.3 g/dL (3.4-5.0); CALCIUM 8.2 mg/dL (8.5-10.1); CREATININE 0.8 mg/dL (0.6-1.3); MAGNESIUM 1.9 mg/dL (1.8-2.4); POTASSIUM 3.4 mmol/L (3.5-5.1); TOTAL BILIRUBIN 0.2 mg/dL (<0.1-1.0); TOTAL PROTEIN 6.5 g/dL (6.4-8.2)
[2021-05-08 11:54] VITALS: BP 107/51
[2021-05-08 15:57] VITALS: BP 113/50
[2021-05-08 20:00] VITALS: BP 113/50
[2021-05-09 00:30] VITALS: BP 112/57
[2021-05-09 07:22] LABS: HEMATOCRIT 38.3 % (37.0-47.0); HEMOGLOBIN 13.2 gm/dL (12.0-15.0); MCH 31.3 pg (26.0-34.0); MCHC 34.5 g/dL (28.0-37.0); MCV 90.9 fL (80.0-100.0); RBC 4.22 mil/uL (4.20-5.00); RDW-CV 14.2 % (10.5-14.5); WBC 4.7 thou/uL (4.0-11.0)
[2021-05-09 07:37] LABS: ALBUMIN 3.1 g/dL (3.4-5.0); CALCIUM 7.7 mg/dL (8.5-10.1); CREATININE 0.7 mg/dL (0.6-1.3); MAGNESIUM 1.8 mg/dL (1.8-2.4); POTASSIUM 3.4 mmol/L (3.5-5.1); TOTAL BILIRUBIN 0.2 mg/dL (<0.1-1.0)
[2021-05-09 08:00] VITALS: BP 112/49
[2021-05-09] MEDS ORDERED: NORCO7.5 PO (08:36)
[2021-05-09] MEDS ORDERED: PREDNISONE 10 M10 M1 PO (08:36)
[2021-05-09] MEDS ORDERED: ZYPREXA5 MG PO (11:11)
[2021-05-09 11:54] VITALS: BP 131/68
== END 2021-05-09 16:25 | DRG 177 ==
LOC: M.ERS 19:42 → M.TBA-ER 21:31 → M.ORTHSURG 21:31 → M.2W 23:52 → M.ORTHSURG 05-07 15:37
PROVIDERS: Internal Medicine; Personal Emergency Response Attendant; ADMIT Internal Medicine; ATTEND Internal Medicine
PROC: XW033E5 Introduction of Remdesivir Anti-infective into Peripheral Vein, Percutaneous Approach, New Technology Group 5 (ICD-10-PCS; principal; 2021-05-07)
DX: U07.1 COVID-19 (principal); J96.01 Acute respiratory failure with hypoxia; J44.9 Chronic obstructive pulmonary disease, unspecified; I10 Essential (primary) hypertension; F20.9 Schizophrenia, unspecified; M79.7 Fibromyalgia; F41.9 Anxiety disorder, unspecified; F17.210 Nicotine dependence, cigarettes, uncomplicated; F31.9 Bipolar disorder, unspecified; Z88.2 Allergy status to sulfonamides; Z79.899 Other long term (current) drug therapy

== ENCOUNTER 2021-10-13 05:51 | Inpatient (IN) | payer OTHER, MEDICAID ==
[~2021-10-13] VITALS: Ht 157.5 cm; Wt 60.3 kg
[~2021-10-13 05:51] MED LIST changes: +REMERON15 M2 PO; -REMERON15 MG PO; +ZYPREXA5 MG PO
[2021-10-13 05:55] VITALS: BP 100/62
[2021-10-13] MEDS ORDERED: LORATIDINE 10 M10 M1 PO (05:59)
[2021-10-13] MEDS ORDERED: BREO ELLIPTA 11 EACH INH (05:59)
[2021-10-13] MEDS ORDERED: ARFORMOTER15 MCG/2 M INH (06:00)
[2021-10-13] MEDS ORDERED: MUCINEX600 MG PO (06:01)
[2021-10-13] MEDS ORDERED: AUGMENTIN 875-1 EACH PO (06:01)
[2021-10-13] MEDS ORDERED: OLANZAPINE ODT5 MG PO (06:01)
[2021-10-13] MEDS ORDERED: PROBIOTIC1 EAC7 PO (06:02)
[2021-10-13 06:26] LABS: ABSOLUTE EOSINOPHILS 0.6 thou/uL (0.0-0.7); ABSOLUTE MONOCYTES 0.8 thou/uL (0.0-1.2); ABSOLUTE NEUTROPHILS 4.7 thou/uL (1.6-8.1); BASOPHILS 0.3 %; EOSINOPHILS 6.9 %; HEMOGLOBIN 15.6 gm/dL (12.0-15.0); LYMPHOCYTES 24.5 %; MCH 31.2 pg (26.0-34.0); MCHC 33.3 g/dL (28.0-37.0); MCV 93.8 fL (80.0-100.0); MONOCYTES 10.4 %; MPV 7.7 fl. (7.2-11.1); NUCLEATED RBCS 0 /100WBC; PLATELET COUNT* 182 thou/uL (150-400); POLYS 57.9 %; RBC 5.01 mil/uL (4.20-5.00); RDW-CV 13.7 % (10.5-14.5); WBC 8.2 thou/uL (4.0-11.0)
[2021-10-13 06:48] LABS: CALCIUM 8.3 mg/dL (8.5-10.1); CREATININE 0.7 mg/dL (0.6-1.3); POTASSIUM 4.3 mmol/L (3.5-5.1)
[2021-10-13 06:57] LABS: ALBUMIN 3.6 g/dL (3.4-5.0); MAGNESIUM 2.1 mg/dL (1.8-2.4); TOTAL BILIRUBIN 0.3 mg/dL (<0.1-1.0); TOTAL PROTEIN 6.6 g/dL (6.4-8.2)
[2021-10-13 07:01] LABS: INFLUENZA A ANTIGEN Negative (Negative); INFLUENZA B ANTIGEN Negative (Negative)
--- NOTE | 2021-10-13 07:59 | NUR ---
PT WAS ON NRB MASK AT 15L. PT PUT ON 4L PER NC. AND 02 SAT 93%. PT CURRENTLY EATING BREAKFAST.
[2021-10-13 11:00] VITALS: BP 101/53
--- NOTE | 2021-10-13 11:54 | EKG ---
[place] [address] ELECTROCARDIOGRAM REPORT Name: UJAN JACOBO Room: [place] [address] ADM IN ..#: [id number] Admission: 10/13/21 Attend Phys: Kiran Viveros Discharge: Date of : 44 Date of Service: 10/13/21 0553 Report #: [id number] THIS REPORT FOR: //name// [facility] ED Test Date: 2021-10-13 Test Time: 05:53:16 Pat Name: JUAN JACOBO Department: Room: [facility] Gender: F Digital Media Specialist: [place] : 1940 Requested By: Josefina Cruz Order Number: [id number] MD: Shaheen Multani Measurements Intervals [place] Rate: 100 P: 80 [place]: 174 QRS: 77 QRSD: 88 T: 39 QT: 344 QTc: 444 Interpretive Statements Sinus tachycardia Compared to ECG 01/16/2021 03:03:35 Sinus rate has increased Electronically Signed On 10-13-2021 11:54:15 LOCK STITCH CHANNELER by Shaheen Multani [email or web address] <ELECTRONICALLY SIGNED> By: Shaheen Multani MD, [facility] 10/13/21 1154 0553 0553 Shaheen Multani MD, [facility] /EPI
[2021-10-13 11:58] LABS: URINE BILIRUBIN NEGATIVE (Negative); URINE BLOOD NEGATIVE (Negative); URINE CLARITY CLEAR; URINE COLOR YELLOW; URINE GLUCOSE-RANDOM NEGATIVE (Negative); URINE KETONES NEGATIVE (Negative); URINE LEUKOCYTES-REFLEX NEGATIVE (Negative); URINE NITRITE-REFLEX NEGATIVE (Negative); URINE PROTEIN NEGATIVE (Negative); URINE SPECIFIC GRAVITY 1.015 (1.005-1.030); URINE UROBILINOGEN 0.2 E.U./dl (0.2-1.0)
[2021-10-13 15:00] VITALS: BP 114/62
--- NOTE | 2021-10-13 16:06 | NUR ---
Pt is admitted to the hospital on 10/13/21 for SOA/COPD Exacerbation. Pt lives at the [facility]. She has a guardian/Public Adminstrator: Caridad Jacque - [phone]/ . Called Caridad and informed her pt was in the hospital. She reports in case of emergency consent needed for any procedures - we can call . Caridad is requesting we fax discharge paperwork. [facility]: / - spoke with Marlee who reports pt can return when discharged. Pt has a guardian due to her psych hx: Bipolar. Pt has a hx of [facility] and [facility]. Pt has a hx of inpatient psych stay with [facility] in [place], [place]. Pt didn't require assistance with ADL's or Mobility. CM to continue to follow for discharge planning.
[2021-10-13 17:48] VITALS: BP 103/57
--- NOTE | 2021-10-13 18:59 | NUR ---
PT TRANSFERRED FROM ER TO THIS UNIT AT APPROX.1800. PT IS EXTREMELY NON COMPLIANT, PT HAS REFUSED TO ALLOW THIS CANDY ROLLING MACHINE OPERATOR TO PLACE A HEART MONITOR ON, CHECK HER VS AND PT STATES I DONT WANT TO BE HERE AND YOU ARE NOT TOUCHING ME OR GIVING ME ANY MEDICATIONS. PT APPEARS TO BE IN NO DISRESS. SHE IS A&OX3 WITH SOME CONFUSION NOTED. ENCOURAGED PT TO STAY AND PT STATED YOU ARE NOT TALKING ME INTO ANYTHING SO JUST STOP. NOTIFED FACILITY FOR ANY SUGGESTIONS TO PROMOTE COMPLIANCE. MESSAGE PLACED TO DR. FELIX.
--- NOTE | 2021-10-13 19:31 | NUR ---
DR UPDATED ON PT'S CONTINUED NONCOMPLIANCE AND REFUSAL TO TAKE MEDICATIONS. NEW ORDER FOR PRN ATIVAN GIVEN AND ADMINISTERED.
[2021-10-13 19:45] VITALS: BP 99/47
--- NOTE | 2021-10-14 04:36 | NUR ---
PT A&O X 3-4, AGITATED. REFUSES VITALS. ON 3-4L. MEDS GIVEN ORDERED. NO C/O PAIN. UP WITH SBA TO BR. BED ALARM ON FOR SAFETY. WILL CONTINUE TO MONITOR.
[2021-10-14] MEDS ORDERED: PROVENTIL HFA6.7 G1 PO (12:25)
[2021-10-14] MEDS ORDERED: PREDNISONE 10 M10 MG PO (12:25)
[2021-10-14] MEDS ORDERED: DORYX MPC120 MG PO (12:25)
[2021-10-14] MEDS ORDERED: VITAMIN D310 MC2 PO (12:25)
--- NOTE | 2021-10-14 14:11 | NUR ---
PLAN OF CARE: PHYSICIAN INFORMS OF PLAN FOR THE PT TO D/C TODAY PENDING R.T. REST AND EX OX. CM SPOKE TO [facility] AND THEY WILL ACCEPT THE PT. RN TO CALL REPORT. [facility] TO PROVIDE TRANSPORT FOR THE PT AT 1530. CM CALLED AND FAXED PT'S PUBLIC ACTUARIAL CONSULTANT TO INFORM OF D/C AND FAXED D/C ORDERS TO THEM. CM WILL REMAIN AVAILABLE TO ASSIST AND FOLLOW NEEDED.
== END 2021-10-14 15:17 | DRG 193 ==
LOC: M.ERS 05:51 → M.TBA-ER 06:54 → M.2W 18:32
PROVIDERS: Emergency Medicine; ADMIT Internal Medicine; ATTEND Internal Medicine
DX: J15.9 Unspecified bacterial pneumonia (principal); J96.01 Acute respiratory failure with hypoxia; J44.1 Chronic obstructive pulmonary disease with (acute) exacerbation; J44.0 Chronic obstructive pulmonary disease with (acute) lower respiratory infection; Z20.822 Contact with and (suspected) exposure to COVID-19; F41.9 Anxiety disorder, unspecified; Z79.899 Other long term (current) drug therapy; Z88.2 Allergy status to sulfonamides; F17.210 Nicotine dependence, cigarettes, uncomplicated; I10 Essential (primary) hypertension; F31.9 Bipolar disorder, unspecified; F20.9 Schizophrenia, unspecified

== ENCOUNTER 2021-11-08 04:36 | Inpatient (IN) | payer OTHER, MEDICAID ==
[~2021-11-08] VITALS: Ht 157.5 cm; Wt 59.9 kg
[~2021-11-08 04:36] MED LIST changes: +ARFORMOTER15 MCG/2 M INH; +AUGMENTIN 875-1 EACH PO; +BREO ELLIPTA 11 EACH INH; +DORYX MPC120 MG PO; +LORATIDINE 10 M10 M1 PO; +MUCINEX600 MG PO; +OLANZAPINE10 M1 PO; +PROBIOTIC1 EAC7 PO; +PROVENTIL HFA6.7 G1 PO; +VITAMIN D310 MC2 PO
[2021-11-08 04:37] VITALS: BP 105/67
[2021-11-08 05:51] LABS: HEMATOCRIT 44.4 % (37.0-47.0); HEMOGLOBIN 14.8 gm/dL (12.0-15.0); MCH 30.7 pg (26.0-34.0); MCHC 33.3 g/dL (28.0-37.0); MCV 92.1 fL (80.0-100.0); MPV 8.1 fl. (7.2-11.1); NUCLEATED RBCS 0 /100WBC; PLATELET COUNT* 164 thou/uL (150-400); RBC 4.82 mil/uL (4.20-5.00); RDW-CV 13.5 % (10.5-14.5); WBC 6.3 thou/uL (4.0-11.0)
[2021-11-08 05:55] LABS: CALCIUM 8.4 mg/dL (8.5-10.1); CREATININE 0.9 mg/dL (0.6-1.3); POTASSIUM 3.9 mmol/L (3.5-5.1)
[2021-11-08 05:59] LABS: ALBUMIN 3.3 g/dL (3.4-5.0); TOTAL BILIRUBIN 0.3 mg/dL (<0.1-1.0); TOTAL PROTEIN 6.5 g/dL (6.4-8.2)
[2021-11-08 06:20] LABS: INFLUENZA A ANTIGEN Negative (Negative); INFLUENZA B ANTIGEN Negative (Negative)
[2021-11-08 06:27] LABS: BE -5.8 mmol/L (-2 to +3)
[2021-11-08 06:32] LABS: pH 7.211 (7.340-7.450)
[2021-11-08 06:33] LABS: PCO2 58.5 mmHg (35.0-45.0)
[2021-11-08 08:44] LABS: ABSOLUTE EOSINOPHILS 0.4 thou/uL (0.0-0.7); ABSOLUTE LYMPHOCYTES 2.8 thou/uL (0.8-5.3); ABSOLUTE MONOCYTES 0.6 thou/uL (0.0-1.2); ABSOLUTE NEUTROPHILS 2.4 thou/uL (1.6-8.1)
[2021-11-08 08:45] LABS: PLATELET ESTIMATE DECREASED
[2021-11-08] MEDS ORDERED: ACIDOPHILUS PR1 EAC2 PO (15:27)
[2021-11-08] MEDS ORDERED: ZYPREXA5 MG PO ×2 (15:28)
[2021-11-08] MEDS ORDERED: TRAZODONE HCL50 MG PO (15:29)
[2021-11-08] MEDS ORDERED: IPRAT-ALBUT 0.5-3 ML INH (15:31)
[2021-11-08] MEDS ORDERED: NORCO7.5 PO (15:32)
[2021-11-09 01:00] VITALS: BP 101/44
[2021-11-09 04:53] LABS: CALCIUM 8.3 mg/dL (8.5-10.1); CREATININE 0.7 mg/dL (0.6-1.3); POTASSIUM 4.5 mmol/L (3.5-5.1)
[2021-11-09 04:55] LABS: ABSOLUTE LYMPHOCYTES 0.7 thou/uL (0.8-5.3); ABSOLUTE MONOCYTES 0.3 thou/uL (0.0-1.2); BASOPHILS 0.1 %; HEMATOCRIT 40.9 % (37.0-47.0); HEMOGLOBIN 13.7 gm/dL (12.0-15.0); LYMPHOCYTES 7.7 %; MCHC 33.4 g/dL (28.0-37.0); MCV 92.7 fL (80.0-100.0); MONOCYTES 3.4 %; MPV 8.2 fl. (7.2-11.1); NUCLEATED RBCS 0 /100WBC; PLATELET COUNT* 171 thou/uL (150-400); POLYS 88.8 %; RBC 4.41 mil/uL (4.20-5.00); RDW-CV 13.8 % (10.5-14.5)
[2021-11-09 05:00] VITALS: BP 103/54
[2021-11-09 08:50] VITALS: BP 97/55
--- NOTE | 2021-11-09 09:15 | EKG ---
[place] [address] ELECTROCARDIOGRAM REPORT Name: JUAN JACOBO Room: [place] [address] ADM IN ..#: [id number] Admission: 11/08/21 Attend Phys: Sigifredo Ceja, Discharge: Date of : 44 Date of Service: 11/08/21 0500 Report #: [id number] THIS REPORT FOR: //name// [facility] ED Test Date: 2021-11-08 Test Time: 05:00:15 Pat Name: JUAN JACOBO Department: Room: [place] [address] Gender: F Community Service Representative: RAYNA : 1940 Requested By: Ravi Kruger Order Number: [id number] MD: Shaheen Multani Measurements Intervals [place] Rate: 97 P: 83 [place]: 185 QRS: 74 QRSD: 82 T: 53 QT: 348 QTc: 442 Interpretive Statements Sinus rhythm Anteroseptal infarct, old possible Compared to ECG 10/13/2021 05:53:16 Evidence for possible anteroseptal infarct persists Sinus tachycardia no longer present Electronically Signed On 11-09-2021 9:14:59 LABOR ECONOMICS TEACHER by Shaheen Multani [email or web address] <ELECTRONICALLY SIGNED> By: Shaheen Multani MD, [facility]ACC 11/09/21 0914 050 0500 Shaheen Multani MD, FAC /EPI
[2021-11-09 12:12] LABS: BE -0.3 mmol/L (-2 to +3); PO2 70.5 mmHg (75.0-100.0); pH 7.323 (7.340-7.450)
[2021-11-09 12:16] LABS: PCO2 52.5 mmHg (35.0-45.0)
[2021-11-09 12:48] VITALS: BP 97/55
[2021-11-09] MEDS ORDERED: PREDNISONE 10 M10 MG PO (16:08)
[2021-11-09 16:56] VITALS: BP 97/55
[2021-11-09 21:00] VITALS: BP 124/60
[2021-11-10 01:15] VITALS: BP 131/59
[2021-11-10 04:19] LABS: HEMATOCRIT 42.4 % (37.0-47.0); HEMOGLOBIN 13.8 gm/dL (12.0-15.0); MCH 30.6 pg (26.0-34.0); MCHC 32.6 g/dL (28.0-37.0); MCV 93.9 fL (80.0-100.0); MPV 8.3 fl. (7.2-11.1); RBC 4.52 mil/uL (4.20-5.00); RDW-CV 13.8 % (10.5-14.5); WBC 12.8 thou/uL (4.0-11.0)
[2021-11-10 04:58] LABS: CALCIUM 8.4 mg/dL (8.5-10.1); CREATININE 0.7 mg/dL (0.6-1.3); POTASSIUM 4.6 mmol/L (3.5-5.1)
[2021-11-10 05:45] VITALS: BP 111/64
[2021-11-10 09:37] VITALS: BP 130/78
[2021-11-10 14:53] VITALS: BP 128/72
[2021-11-10 16:16] LABS: BE 4.9 mmol/L (-2 to +3); PCO2 45.6 mmHg (35.0-45.0); PO2 71.6 mmHg (75.0-100.0); pH 7.436 (7.340-7.450)
[2021-11-10 17:36] VITALS: BP 119/56
[2021-11-10 18:15] LABS: URINE BILIRUBIN NEGATIVE (Negative); URINE BLOOD NEGATIVE (Negative); URINE COLOR YELLOW; URINE GLUCOSE-RANDOM TRACE (Negative); URINE KETONES NEGATIVE (Negative); URINE LEUKOCYTES-REFLEX 1+ (Negative); URINE NITRITE-REFLEX NEGATIVE (Negative); URINE PROTEIN NEGATIVE (Negative); URINE UROBILINOGEN 0.2 E.U./dl (0.2-1.0)
[2021-11-10 18:17] LABS: URINE CLARITY HAZY
[2021-11-10 18:18] LABS: BACTERIA-REFLEX None Seen /HPF (None Seen); CASTS None Seen /LPF (None Seen); CRYSTALS None Seen /LPF (None Seen); SQUAMOUS 4-10 Moderate /LPF (0-3); URINE RBC 0-2 Rare /HPF (0-2); URINE WBC-REFLEX 0-5 Rare /HPF (0-5)
[2021-11-10 19:52] VITALS: BP 120/62
[2021-11-11] VITALS: BP 129/70
[2021-11-11 00:18] VITALS: BP 120/62
[2021-11-11 04:00] VITALS: BP 103/45
[2021-11-11 08:00] VITALS: BP 112/71
[2021-11-11 21:00] VITALS: BP 99/40
[2021-11-12 00:23] VITALS: BP 94/46
[2021-11-12 04:00] VITALS: BP 93/47
[2021-11-12 08:00] VITALS: BP 106/58
[2021-11-12 12:19] VITALS: BP 93/47
--- NOTE | 2021-11-14 18:57 | CON ---
[address] [address] CONSULTATION Name: JUAN JACOBO Room: [address] IN M.R.#: [id number] Admission: 11/08/21 Attend Phys: Sigifredo Ceja MD Discharge: 11/12/21 Date of : 44 Report #: [id number] THIS REPORT FOR: cc: Pratik Whittington MD, Dennis R MD Pervez, Adeel MD ~ DATE OF CONSULTATION: 11/10/2021 REQUESTING PHYSICIAN: Ravi Kruger DO INDICATION FOR CONSULTATION: Shortness of breath. HISTORY OF PRESENT ILLNESS: A 81-year-old female, past medical history includes a history of COPD. The patient is an active smoker, not known to be on supplemental oxygen at home. Says that she was here previously a month or two ago as well when she had received a shot, unclear if this was a COVID vaccine or not. The patient had subsequently felt ill. At this time, she is here with shortness of breath. She is coughing. There is not much sputum. She appears to be actively bronchospastic. There is no swelling of lower extremities or calf pain. She has had a clear nasal discharge as well. REVIEW OF SYSTEMS: For 12 points is negative except as mentioned above. She is on 3 liters nasal cannula. PAST MEDICAL HISTORY: COPD; mental illness, I do not have details available, bipolar disorder; anxiety, questionable; possible history of psychosis; hypertension. There is an old echo from 2016 in [facility]. I could not pull up the report. Other than this, there is no available information regarding her left ventricular ejection fraction. SOCIAL HISTORY: Active smoker. CURRENT MEDICATIONS: List in [facility] reviewed. HOME MEDICATIONS: List in [facility] reviewed. FAMILY HISTORY: There is recent suspected exposure to COVID-19. Some of the persons at the facility she lives at are known to have COVID-19. PHYSICAL EXAMINATION: GENERAL: She is alert, awake and oriented. VITAL SIGNS: In the record. These are reviewed. NECK: Does not show raised JVP. CHEST: Breath sounds are bilaterally equal, decreased. Expirations are prolonged. There are loud inspiratory as well [place] [address] CONSULTATION Name: JUAN JACOBO Room: [address]#: [id number] Admission: 11/08/21 Attend Phys: Sigifredo Ceja MD Discharge: 11/12/21 Date of : 44 Report #: [id number] HEART: Regular. There is no murmur. ABDOMEN: Soft and nontender. EXTREMITIES: Lower extremities, no edema and no calf tenderness. SKIN: Dry and intact. LABORATORY AND DIAGNOSTIC DATA: The patient had a chest x-ray as well as CT chest and lab work performed. I reviewed the reports as well as films. ASSESSMENT AND PLAN: 1. Acute hypoxemic/hypercarbic respiratory failure, pH has still not normalized and pCO2 is still high on the arterial blood gas performed 2 days ago. I noticed that she was ordered BiPAP and this was put on hold. I understand that she mental illness as well and had subsequently received Zyprexa; therefore, I did not reorder BiPAP at this time. I will obtain an arterial blood gas. If the pH is still low, then I will go ahead and put her on a BiPAP while asleep. Otherwise, we will assess risks and benefits, continue to titrate oxygen. 2. Chronic obstructive pulmonary disease exacerbation. She still appears to be actively bronchospastic. Therefore, recommend keeping her in the hospital a couple of days and gradually titrating down Solu-Medrol, but I felt that it is okay to decrease it to t.i.d. at 62.5, remains on nebulized bronchodilators. I do not see any large infiltrates on the patient's chest imaging; however, I feel that it is reasonable to give her Levaquin as currently ordered. 4. Exposure to COVID-19. She either has not been vaccinated or received 1 dose of COVID vaccine previously. She has had exposure to COVID-19 recently. Therefore, I agree that we should check PCR, which is pending. Antigen was negative. 5. Lung nodules. There are subcentimeter lung nodules on CT. Recommend only a CT chest without contrast in 6 months. 6. Hyperglycemia with Lantus and insulin sliding scale. 7. Deep venous thrombosis prophylaxis, on Lovenox. No evidence of thromboembolism at this time. 8. Clostridium difficile prophylaxis, Lactinex. Thanks for this consultation. <ELECTRONICALLY SIGNED> By: Ryan Case MD 11/14/21 1857 1442 Hesham Case MD /nt
== END 2021-11-12 12:00 | DRG 189 ==
LOC: M.ERS 04:36 → M.TBA-ER 12:43 → M.ORTHSURG 11-10 23:18
PROVIDERS: Internal Medicine; Internal Medicine Critical Care Medicine; Personal Emergency Response Attendant; ADMIT Internal Medicine; ATTEND Internal Medicine
PROC: 5A09357 Assistance with Respiratory Ventilation, Less than 24 Consecutive Hours, Continuous Positive Airway Pressure (ICD-10-PCS; principal; 2021-11-08)
DX: J96.01 Acute respiratory failure with hypoxia (principal); E87.2 Acidosis; J44.1 Chronic obstructive pulmonary disease with (acute) exacerbation; J44.0 Chronic obstructive pulmonary disease with (acute) lower respiratory infection; J96.02 Acute respiratory failure with hypercapnia; I10 Essential (primary) hypertension; Z20.822 Contact with and (suspected) exposure to COVID-19; F41.9 Anxiety disorder, unspecified; K59.00 Constipation, unspecified; R91.1 Solitary pulmonary nodule; R73.9 Hyperglycemia, unspecified; F17.210 Nicotine dependence, cigarettes, uncomplicated; Z88.2 Allergy status to sulfonamides